=== PATIENT | male | born 1980 | race Caucasian/White ===

== ENCOUNTER 2017-12-18 18:52 | Emergency (ER) | payer BC ==
[~2017-12-18] VITALS: Ht 177.8 cm; Wt 81.6 kg
--- NOTE | 2017-12-18 19:15 | NUR ---
DR VICTORIA KC MD AT BEDSIDE FOR MSE.
[2017-12-18] MEDS ORDERED: TDAP DIPH,PERTUSS,TET VAC/PF 0.5 ML DISP.SYRIN IM ONE ×2 (19:30→20:03)
[2017-12-18] MEDS ORDERED: IBUPROFEN 800 MG TABLET PO ONE (19:30)
[2017-12-18] MEDS ORDERED: IBUPROFEN 800 MG TABLET ONE (20:03)
--- NOTE | 2017-12-18 20:58 | NUR ---
PT RESTING IN BED IN A POSITION OF COMFORT. FAMILY AT BEDSIDE. NO DISTRESS NOTED.
--- NOTE | 2017-12-18 21:58 | NUR ---
PT AMBULATED TO BATHROOM W/ STEADY GAIT. NO DISTRESS NOTED.
--- NOTE | 2017-12-18 23:00 | NUR ---
Patient discharged to home in stable conditon. Written and verbal after care instructions given. Patient verbalizes understanding of instructions. Pt ambulated from ER w/ steady gait accompanied by family members. no distress noted.
[2017-12-18 23:05] VITALS: BP 111/78
== END 2017-12-18 23:06 | disposition home or self-care (01) ==
LOC: ER 19:01
DX: S50.862A Insect bite (nonvenomous) of left forearm, initial encounter (principal); M79.1 Myalgia; W57.XXXA Bitten or stung by nonvenomous insect and other nonvenomous arthropods, initial encounter; Y93.89 Activity, other specified; Y92.89 Other specified places as the place of occurrence of the external cause; Y99.8 Other external cause status
CPT/HCPCS: 90471; 90715; 99283; A4663